=== PATIENT | female | born 1975 | race Caucasian/White ===

== ENCOUNTER 2016-10-23 12:22 | Observation (INO) | payer OTHER ==
[~2016-10-23] VITALS: Ht 175.3 cm; Wt 120.0 kg
--- NOTE | 2016-10-23 14:22 | ED ORDER SUMMARY ---
..... Patient: SARA SOTO OrderSheet [facility] VisitID: [id number] [address] [place] [address] 40y, F Registration Date/Time: 10/23/2016 ORDER SHEET Weight: 122.4 kg (stated) Allergies: Cyclobenzaprine HCl, Robaxin, Vancomycin GENERAL ORDERS: CBC w Diff Urgent (12:59 10/23/2016 PHutchinson DO) (Ack 13:02 LNations ER Tech1) (13:35 LSullivan R.N.) CMP Urgent (12:59 10/23/2016 PHutchinson DO) (Ack 13:02 LNations ER Tech1) (13:35 LSullivan R.N.) UA-Culture if indicated Urgent (12:10/23/2016 PHutchinson DO) (Ack 13:02 LNations ER Tech1) (16:26 JSimbeck R.N.) (Cancelled: Unable to [id number]:27 JSimbeck R.N.) PT with INR Urgent (12:59 10/23/2016 PHutchinson DO) (Ack 13:02 LNations ER Tech1) (13:35 LSullivan R.N.) D-Dimer Urgent (12:59 10/23/2016 PHchinson DO) (Ack 13:02 LNations ER Tech1) (13:35 LSullivan R.N.) PCT (Procalcitonin) Urgent (12:59 10/23/2016 PHutchinson DO) (Ack 13:02 LNations ER Tech1) (13:35 LSullivan R.N.) CRP Urgent (12:59 10/23/2016 PHutchinson DO) (Ack 13:02 LNations ER Tech1) (13:35 LSullivan R.N.) ESR Urgent (12:10/23/2016 PHutchinson DO) (Ack 13:02 LNations ER Tech1) (13:36 LSullivan R.N.) US Venous Right (RIGHT UPPER EXTREMITY; HISTORY OF MASTECTOMY WITH LYMPH NODE REMOVAL) Urgent (13:00 10/23/2016 PHkychinson DO) (Ack 13:03 LNations ER Tech1) (15:05 EHassan R.N.) MEDICATION ORDERS: IV FLUIDS: IV NS : initial bolus 1000 mL (1000 mL/hr), then 250 mL/hr for X4 (NOW) (12:59 10/23/2016 [facility]) (13:52 Marco Antonio R.N.) Vancomycin IV 2 gm/500 mL (NOW) (13:00 10/23/2016 [facility]) (Ack 14:39 Kelvin R.N.) (14:42 Kelvin R.N.) (Cancelled: Oxnftdi22:33 [facility]) Dilaudid IV 1 mg (HIGH ALERT MEDICATION, NOW) (15:00 10/23/2016 [facility]) (15:04 Amairani R.N.) Zofran IV 4 mg (NOW) (15:00 10/23/2016 [facility]) (15:04 Amairani R.N.) Clindamycin IV 900 mg/50mL (NOW) (15:33 10/23/2016 [facility]) (15:47 Marco Antonio R.N.) Benadryl IV 50 mg (NOW) (15:36 10/23/2016 [facility]) (15:47 Marco Antonio R.N.) ORDER SHEET NOTES: [Electronically signed by Justice Bush R.N. (16:27 10/23/2016)] [Electronically signed by Mateo Burks DO (20:18 10/23/2016)] [Electronically locked/signed by Justice Bush R.N. (16:10/23/2016)]
--- NOTE | 2016-10-23 14:22 | ED NURSING NOTES ---
Clinical Report - Nurses [facility] [address] [place] [address] 10/23/2016 12:29 Patient: SARA SOTO TRIAGE Triage time 12:38. Acuity: LEVEL 3. Chief Complaint: (Right arm red, swollen, painful, onset yesterday. s/p mastectomy (2010)). BISHOP COMA SCORE: [place] Coma Scale: 15- eyes open spontaneously (4); best verbal response- oriented x 4 (5); best motor response- obeys commands (6). --12:46 Justice Bush R.N. 12:38 10/23/16. BP: 191/117 taken on the left arm, while sitting. HR: 99. RR: 20. O2 saturation: 95% on room air. Temp: 98.5 F. Pain level now: 12/16. --12:46 Justice Bush R.N. Weight: 122.4 kg stated. Height/Length: 69 inches Per Patient. BMI: 39.9. --12:42 Justice Bush R.N. Medications Naprosyn Oral, as needed. --12:40 Justice Bush R.N. Vitamins OTC. --12:40 Justice Bush R.N. Allergies Cyclobenzaprine HCl. (Restless leg symptoms) Robaxin.(itching) --12:39 Justice Bush R.N. Vancomycin.(hives) --16:25 Justice Bush R.N. History Arrived by private vehicle. This started yesterday. Treatment CARDIOLOGY CONSULTANT: (took her mother's Morphine 30mg last night). SOCIAL HX: Heavy tobacco smoker (cigarette)- 1 pack per day. Occasional alcohol use. History of occasional drug use: marijuana. ABUSE ASSESSMENT: No report of abuse. --12:46 Justice Bush R.N. PROBLEMS: Hypertension. Breast Cancer. --12:41 Justice Bush R.N. ADDITIONAL SURGERIES: Hysterectomy. Mastectomy. --12:41 Justice Bush R.N. Assessment GENERAL / NEURO / PSYCH: Alert. Oriented X 4. Appears in pain. Patient appears calm and cooperative. RESPIRATORY: Respirations not labored. Chest nontender. Breath sounds within normal limits. CVS: Capillary refill less than 2 seconds. SKIN: Mucous membranes are pink. Skin is warm and dry. ( right arm red, hot, dry). --12:46 Justice Bush R.N. Interventions ID band on patient. To treatment room. --12:46 Justice Bush R.N. PHYSICAL ASSESSMENT Ambulatory to room. GENERAL / NEURO / PSYCH: Alert. Oriented X 4. Appears in pain. HEENT: Pupils equal, round and reactive to light. No facial asymmetry noted. Mucous membranes are pink. RESPIRATORY: Respirations not labored. Chest nontender. Breath sounds within normal limits. CVS: Capillary refill less than 2 seconds. Pulses within normal limits. SKIN: ( right arm red, hot, dry, swollen, decreased AROM, c/o burning feeling.). --12:58 Justice Bush R.N. NURSING PROGRESS NOTES Head of bed elevated. Reassurance given. Two patient identifiers checked. Call light placed in reach. Bed placed in lowest position. Brakes of bed on. Patient ready for evaluation- chart flagged. --12:58 Justice Bush R.N. 13:36 10/23/2016 Site #1 started via IV in the left forearm with an 20g angiocath, with aseptic technique and good blood return; two attempts. Blood drawn: rainbow set. Labeled in the presence of the patient and sent to the lab. Saline lock flushed with 10 mL saline. --13:36 Afia Perry R.N. 13:37 10/23/16. ( [employer] tech came into room.). --13:37 Afia Perry R.N. 13:50 10/23/2016 Started bag #1 1000 mL IV Fluids IV NS (Saline); bolus of 1000 mL over 1 hour(s) via site #1. Allergies verified and confirmed 5 rights. IV patency established. IV site checked: no pain, redness, or swelling. IV flushed thoroughly pre- and post-medication administration. --13:52 Justice Bush R.N. ( US at bedside). --13:54 Justice Bush R.N. ( H/P forms in rack.). --14:30 Carmel Domingo, ER Tech1 14:37 10/23/2016 Started 2 gm of Vancomycin IVPB in bag #1 500 mL; over 2 hour(s) via site #1 via IV pump. Allergies verified and confirmed 5 rights. IV patency established. IV site checked: no pain, redness, or swelling. IV flushed thoroughly pre- and post-medication administration. --14:42 Brody Newman R.N. ( overview faxed to ICU). --14:54 Carmel Domingo, ER Tech1 15:04 10/23/2016 Dilaudid (HYDROmorphone HCl PF) IVP 1 mg given over 30 second(s) via site #1. Allergies verified, confirmed 5 rights and sedative warning given to the patient and patient's family. IV patency established. IV site checked: no pain, redness, or swelling. IV flushed thoroughly pre- and post-medication administration. IVP given by RN. --15:04 Pallavi Shaffer R.N. 15:04 10/23/2016 Zofran (Ondansetron HCl) IVP 4 mg given over 2 minute(s) via site #1. Allergies verified and confirmed 5 rights. IV patency established. IV site checked: no pain, redness, or swelling. IV flushed thoroughly pre- and post-medication administration. IVP given by RN. --15:04 Pallavi Shaffer R.N. Reassurance given. The patient is calm and resting quietly. Two patient identifiers checked. --15:08 Pallavi Shaffer R.N. 15:05 10/23/16. BP: 168/100 (regular adult cuff) taken on the left arm, via an automated monitor, while lying. HR: 94. RR: 16. O2 saturation: 97%. Temp: 98.1 F (oral). Pain level now: 02/16. --15:08 Pallavi Shaffer R.N. ( Pt complaint of itching, noted to starting to have a bit of a rash around her left arm, denies SOB. Will notify MD Burks, IV vanco stopped until further evaluation). --15:11 Pallavi Shaffer R.N. 15:45 10/23/2016 Benadryl (DiphenhydrAMINE HCl) IVP 50 mg given over 2 minute(s) via site #1. Allergies verified, confirmed 5 rights and sedative warning given to the patient. IV patency established. IV site checked: no pain, redness, or swelling. IV flushed thoroughly pre- and post-medication administration. IVP given by RN. --15:47 Justice Bush R.N. 15:47 10/23/2016 Started 900 mg of Clindamycin IVPB in bag #1 50 mL; at 50 mL/hr over 1 hour(s) via site #1 via IV pump. Allergies verified and confirmed 5 rights. IV patency established. IV site checked: no pain, redness, or swelling. IV flushed thoroughly pre- and post-medication administration. --15:47 Justice Bush R.N. DISPOSITION / DISCHARGE 15:53 10/23/16. BP: 146/76 (regular adult cuff) taken on the left arm, while lying. HR: 90. RR: 20. O2 saturation: 96% on room air. Temp: 98.9 F (oral). Pain level now: 12/16. --15:53 Justice Bush R.N. 15:58 10/23/2016 Site #[address] upon admission; patent, no pain and no signs of infection or infiltration. Good blood return present. Flushed with 10 mL saline; flushes easily. --16:10 Justice Bush R.N. Departure time: 1558. Condition at departure: stable. Admitted to the Critical Care Unit (301). Report was given to a nurse via a phone call. Report included patient's care, treatment, medications, reviewed medication reconcilliation, and condition (including any recent changes or anticipated changes). All questions were answered. Report was acknowledged. --16:11 Justice Bush R.N. Locked/Released at 10/23/2016 16:27 by Justice Bush R.N.
--- NOTE | 2016-10-23 14:22 | ED ORDER SUMMARY ---
..... Patient: SARA SOTO OrderSheet [facility] VisitID: [id number] [address] [place] [address] 40y, F Registration Date/Time: 10/23/2016 ORDER SHEET Weight: 122.4 kg (stated) Allergies: Cyclobenzaprine HCl, Robaxin, Vancomycin GENERAL ORDERS: CBC w Diff Urgent (12:59 10/23/2016 PHutchinson DO) (Ack 13:02 LNations ER Tech1) (13:35 LSullivan R.N.) CMP Urgent (12:59 10/23/2016 PHutchinson DO) (Ack 13:02 LNations ER Tech1) (13:35 LSullivan R.N.) UA-Culture if indicated Urgent (12:10/23/2016 PHutchinson DO) (Ack 13:02 LNations ER Tech1) (16:26 JSimbeck R.N.) (Cancelled: Unable to [id number]:27 JSimbeck R.N.) PT with INR Urgent (12:59 10/23/2016 PHutchinson DO) (Ack 13:02 LNations ER Tech1) (13:35 LSullivan R.N.) D-Dimer Urgent (12:59 10/23/2016 PHchinson DO) (Ack 13:02 LNations ER Tech1) (13:35 LSullivan R.N.) PCT (Procalcitonin) Urgent (12:59 10/23/2016 PHutchinson DO) (Ack 13:02 LNations ER Tech1) (13:35 LSullivan R.N.) CRP Urgent (12:59 10/23/2016 PHutchinson DO) (Ack 13:02 LNations ER Tech1) (13:35 LSullivan R.N.) ESR Urgent (12:10/23/2016 PHutchinson DO) (Ack 13:02 LNations ER Tech1) (13:36 LSullivan R.N.) US Venous Right (RIGHT UPPER EXTREMITY; HISTORY OF MASTECTOMY WITH LYMPH NODE REMOVAL) Urgent (13:00 10/23/2016 PHnhchinson DO) (Ack 13:03 LNations ER Tech1) (15:05 EHassan R.N.) MEDICATION ORDERS: IV FLUIDS: IV NS : initial bolus 1000 mL (1000 mL/hr), then 250 mL/hr for X4 (NOW) (12:59 10/23/2016 [facility]) (13:52 Marco Antonio R.N.) Vancomycin IV 2 gm/500 mL (NOW) (13:00 10/23/2016 [facility]) (Ack 14:39 Kelvin R.N.) (14:42 Kelvin R.N.) (Cancelled: [id number] [facility]) Dilaudid IV 1 mg (HIGH ALERT MEDICATION, NOW) (15:00 10/23/2016 [facility]) (15:04 Amairani R.N.) Zofran IV 4 mg (NOW) (15:00 10/23/2016 [facility]) (15:04 Amairani R.N.) Clindamycin IV 900 mg/50mL (NOW) (15:33 10/23/2016 [facility]) (15:47 Marco Antonio R.N.) Benadryl IV 50 mg (NOW) (15:36 10/23/2016 [facility]) (15:47 Marco Antonio R.N.) ORDER SHEET NOTES: [Electronically signed by Justice Bush R.N. (16:27 10/23/2016)] [Electronically signed by Mateo Burks DO (20:18 10/23/2016)] [Electronically locked/signed by Justice Bush R.N. (16:10/23/2016)]
--- NOTE | 2016-10-23 14:22 | ED CLINICAL REPORT ---
Clinical Report - Physicians/Mid Levels [facility] [address] [place] [address] 10/23/2016 12:29 Patient: SARA SOTO Time Seen: 12:49. Arrived- By private vehicle. Historian- patient. HISTORY OF PRESENT ILLNESS Chief Complaint: LESION and TENDER AREA. This started yesterday and is still present. It was gradual in onset and has been waxing/waning. It is described as painful. It has been located on the right arm. No cause has been identified. No recent medication or insect bite. (Swelling and redness have rapidly progressed over 24 hours from small area in the right AC to the entire right upper extremity). Similar symptoms previously: Once, milder. ( This occured after mastectomy in the post operative period). Recent medical care: Not recently seen/assessed. REVIEW OF SYSTEMS No fever, chills, sore throat, cough or difficulty breathing. No hoarseness, headache, chest pain, abdominal pain or nausea. No diarrhea, difficulty with urination, joint pain or vomiting. All systems otherwise negative, except as recorded above. PAST HISTORY PCP: Dr Ayo Perez ([place]) She is in the process of changing PCP's - no appointments available until November. Hypertension. Chronic back pain. History of breast cancer. Surgeries: Mastectomy. SOCIAL HISTORY Occasional alcohol use. History of drug use also took her mother's morphine last night: marijuana. Is a local resident. Marital status: . ADDITIONAL NOTES The nursing notes have been reviewed. PHYSICAL EXAM Vital Signs: 10/23/2016 12:38 BP: 191/117. HR: 99. RR: 20. O2 saturation: 95%. Temp: 98.5 F. Pain level now: 7/10. Appearance: Alert. Patient in moderate distress. Eyes: Conjunctivae and eyelids normal. ENT: Pharynx normal. Neck: Neck supple. CVS: Tachycardia. Heart sounds normal. No cardiac murmur. Respiratory: No respiratory distress. Breath sounds normal. Chest nontender. Abdomen: Nontender. No organomegaly. Skin: No cyanosis. No pallor. No diaphoresis. Large area of cellulitis with tenderness, erythema and warmth to right axilla, right arm, right elbow, right forearm, right wrist and right hand. Extremities: (left upper cellulitis). Neuro: Oriented X 3. No motor deficit. No sensory deficit. LABS, X-RAYS, AND EKG Duplex Ultrasound: Right upper extremity study. Negative results. (No DVT or abscess). The exam was performed by a dental technician. The study was independently viewed by me and interpreted by the radiologist. The study was discussed with the radiologist (via tech). Laboratory Tests: CBC w Diff: (BERENICE: 10/23/2016 13:30) ( MsgRcvd 10/23/2016 14:10) Final results Test Result Flag Units (Reference) WHITE BLOOD COUNT 15.6 H K/uL (4.5-11.5) RED BLOOD COUNT 4.57 M/uL (4.00-5.20) HEMOGLOBIN 13.4 gm/dL (12.0-16.0) HEMATOCRIT 39.7 % (36.0-46.0) MEAN CELL VOLUME 87 fL (80-100) MEAN CORPUSCULAR HGB 29 pg (26-34) MEAN CORPUSCULAR HGB CONC 34 g/dL (31-37) RED CELL DISTRIBUTION WIDTH 13.8 % (11.6-14.8) PLATELET COUNT 243 K/uL (150-400) NEUTROPHIL % 78.6 H % (50-75) LYMPH % 16.4 L % (25-40) MONO % 4.2 % (3-14) EOSINOPHIL % 0.6 % (0-4) BASOPHIL % 0.2 % (0-2) SED RATE WESTERGREN 53 H mm/hr (0-20) PT with INR: (BERENICE: 10/23/2016 13:30) ( MsgRcvd 10/23/2016 13:56) Final results Test Result Flag Units (Reference) INR 1.1 (0.8-1.2) Low Intensity Therapy: INR 1.5-2.0 PT range 18.5-23.1Mod.Intensity Therapy: INR 2.0-3.0 PT range 23.1-31.5High Intensity Therapy: INR 2.5-3.5 PT range 27.4-35.5High Intensity Therapy 2: INR 3.0-4.0 PT range 31.5-39.3 D-DIMER QUANTITATIVE 0.30 ug/mLFEU (0.27-0.52) The primary value of this quantitative assay relates toits negative predictive value (i.e. exclusion) of pulmonaryembolism/deep vein thrombosis/DIC.Elevated levels of d-dimer may also occur with:, age, cancer, inflammation, liver disease,post-op, infection, hematoma, coronary disease, peripheralarteriopathy, bleeding disorders and thrombolytic treatment.Results should be correlated with other clinical andradiological data.Testing Methodology: Latex Immunoassay CMP: (BERENICE: 10/23/2016 13:30) ( MsgRcvd 10/23/2016 14:14) Final results Test Result Flag Units (Reference) GLUCOSE 92 mg/dL (70-110) BUN 12 mg/dL (7-18) CREATININE 0.7 mg/dL (0.6-1.3) Estimated GFR >60 mL/min Estimated GFR- >60 mL/min Note: Persistent reduction over 3 months in eGFR<60 mL/min/1.73 m2 defines CKD. Patients with eGFR values>=60 mL/min/1.73 m2 may also have CKD if evidence ofpersistent proteinuria. Additional information may be foundat www.kidney.org. SODIUM 140 mmol/L (136-145) POTASSIUM 3.7 mmol/L (3.5-5.1) CHLORIDE 103 mmol/L (98-107) CARBON DIOXIDE 25 mmol/L (21-32) CALCIUM 8.9 mg/dL (8.5-10.1) TOTAL PROTEIN 7.6 g/dL (6.4-8.2) ALBUMIN 3.4 g/dL (3.3-5.0) BILIRUBIN, TOTAL 0.6 mg/dL (0.0-1.0) ALKALINE PHOSPHATASE 64 U/L (46-116) AST (SGOT) 21 U/L (15-37) ALT (SGPT) 41 U/L (12-78) C-REACTIVE PROTEIN 74.5 H mg/dL (0.0-0.9) . Pulse Oximetry: 10/23/2016 12:38 O2 saturation: 95%. (FIO2 - room air). Interpretation: normal. PROGRESS AND PROCEDURES Course of Care: Normal Saline 1 liter IVPB given. Vancomycin approx 50mg - pt had a reported redness to the left arm and discontinued IVPB given. Benadryl 50 mg IVP given. Zofran 4 mg IVP given. Dilaudid 1 mg IVP given. Patient is stable. Physical exam findings are improved. Symptoms much better. Discussed case with hospitalist, (Rowdy). Reviewed test results. Agreed upon treatment plan. Health care provider will see patient in ED. Patient/family counseled. Transition orders written. Disposition: Admitted to Acute Care. Condition: guarded and improved. CLINICAL IMPRESSION Cellulitis of the right upper arm, right elbow, right forearm, right wrist and right hand. Essential hypertension. INSTRUCTIONS Follow-up: Screening today revealed the patient's blood pressure to be in the hypertensive range. The patient should follow up with a primary care provider for blood pressure management. (Electronically signed by Mateo Burks DO 10/23/2016 20:18)
--- NOTE | 2016-10-23 14:35 | DIAGNOSTIC IMAGING REPORT ---
PROCEDURE: US VENOUS - RIGHT EXT INDICATION: SWELLING TECHNIQUE: Duplex sonography of the deep venous system in the right upper extremity was performed. Compression and augmentation techniques were used. COMPARISON: None. FINDINGS: Each interrogated segment of deep vein from the basilic and cubital veins into the cephalic and brachial veins demonstrates normal compressibility, augmentation and/or color Doppler flow without filling defect. No evidence of significant soft-tissue edema, soft-tissue mass or cyst. IMPRESSION: 1. No deep venous thrombosis in the right upper extremity.
--- NOTE | 2016-10-23 15:17 | HISTORY AND PHYSICAL ---
ADMITTED: 10/23/2016 CHIEF COMPLAINT: 1. Right arm swelling and pain HISTORY OF PRESENT ILLNESS: The patient states that yesterday around 12 in the afternoon, she started having right arm pain and swelling. This worsened throughout the day. It had gotten red from her arm, right side, down towards her hand last night, and then in the morning she woke up and it was all the way up through her hand, to the knuckles, and the pain was bad enough that she was having a hard time sleeping. She came into the emergency department for further evaluation. States she has had an episode once before, postmastectomy in the past, and she does have a history of mastectomy on the right hand side with lymph node dissection, with some swelling chronically but no redness in general. MEDICAL/SURGICAL HISTORY: Past medical history: She has had breast cancer, hypertension, tobacco use. Surgical history: She has had a mastectomy in 2010, hysterectomy, partial in 2008, complete in 2011. MEDICATIONS: 1. Naprosyn 500 b.i.d. p.r.n. pain. 2. Herbals. 3. History of Neurontin in the past. 4. She did take one of a family member's pain killers last night. ALLERGIES: 1. ROBAXIN INTOLERANCE. 2. FLEXERIL INTOLERANCE. SOCIAL HISTORY: She is . She has rare alcohol and marijuana use, and she does smoke on a daily basis. She is thinking about quitting with Chantix. Her primary doctor is Dr. Héctor Perez through [place]. She has not seen him yet, but plans on seeing him soon. FAMILY HISTORY: Father is unknown. Mom is alive and well. REVIEW OF SYSTEMS: Notable for poor sleep. She has this a history of some high blood pressure. She has the redness, pain, swelling, and the poor sleep as discussed. Otherwise, she has a little bit of a cough and wheeze from smoking history. PHYSICAL EXAMINATION: GENERAL: She is an alert female who is in mild distress as she is getting an ultrasound of her right arm that is tender. HEENT: Extraocular movements intact. Pupils equal, round, and reactive to light. Oropharynx is clear, with moist mucous membranes. NECK: Supple, without lymphadenopathy. LUNGS: Coarse breath sounds and wheezes bilaterally. HEART: Regular rate and rhythm. No murmurs, clicks, rubs, or gallops. EXTREMITIES: Her right arm red, is swollen, it is tender. The redness goes from her upper arm/shoulder region down to her hand, to the knuckles of her fingers. Her lower extremities are normal bilaterally. ABDOMEN: Soft, nontender. GENITOURINARY: Deferred. RECTAL: Deferred. BREASTS: Deferred. NEUROLOGIC: Cranial nerves II-XII are intact. Her strength and sensation are grossly intact. LAB/IMAGING: Her CBC shows a white count of 15.6, hematocrit of 39.7, platelets of 243. PT/INR 1.1. D-dimer is 0.30. A comprehensive metabolic panel: Glucose 92, and CRP of 74.5. The rest of the CMP was normal. An ultrasound shows no blood clot as well as no abscess in her right arm. IMPRESSION: 1. This is a 40-year-old female who presents to the emergency department with right-sided cellulitis post a history of mastectomy and breast cancer, who now has pain and swelling of the arm. PLAN: She is going to be admitted for cellulitis, elevated white blood cell count with leukocytosis, and also elevated CRP. We will treat her with antibiotics and have a trial of 1 dose of ceftriaxone and then start on Bactrim DS p.o. t.i.d. and see if she improves over the next 24-48 hours. I anticipate if she is getting better, we will be able to send her home shortly. Likely this is cellulitis related to previous swelling in her arm. CODE STATUS: FULL CODE.
[2016-10-23 16:05] VITALS: BP 163/90
--- NOTE | 2016-10-23 20:18 | ED MAR SUMMARY ---
..... Medication Administration Record [facility] [address] [place] [address] Patient: SARA SOTO Visit ID: [id number] 40y, F Weight: 122.4 kg Height/Length: 69 in BMI: 39.9 ALLERGIES: Cyclobenzaprine HCl, Robaxin, Vancomycin Start 13:50 10/23/2016 Justice Bush R.N. Medication Administered: IV NS (SALINE), Dose: IV Fluids, Bolus: 1000 mL over 1 hour(s), Dispensed: 1000 mL bag, Site: #1 left forearm. Medication Ordered: IV NS : initial bolus 1000 mL (1000 mL/hr), then 250 mL/hr for X4 (NOW). Start 14:37 10/23/2016 Brody Newman R.N. Medication Administered: VANCOMYCIN [IVPB], Dose: 2 gm IVPB over 2 hour(s), Dispensed: 500 mL bag, Site: #1 left forearm. Medication Ordered: Vancomycin IV 2 gm/500 mL (NOW). Given 15:04 10/23/2016 Pallavi Shaffer R.N. Medication Administered: DILAUDID [IVP] (HYDROMORPHONE HCL PF), Dose: 1 mg IVP over 30 second(s), Site: #1 left forearm. Medication Ordered: Dilaudid IV 1 mg (HIGH ALERT MEDICATION, NOW). Given 15:04 10/23/2016 Pallavi Shaffer R.N. Medication Administered: ZOFRAN [IVP] (ONDANSETRON HCL), Dose: 4 mg IVP over 2 minute(s), Site: #1 left forearm. Medication Ordered: Zofran IV 4 mg (NOW). Given 15:45 10/23/2016 Justice Bush R.N. Medication Administered: BENADRYL [IVP] (DIPHENHYDRAMINE HCL), Dose: 50 mg IVP over 2 minute(s), Site: #1 left forearm. Medication Ordered: Benadryl IV 50 mg (NOW). Start 15:47 10/23/2016 Justice Bush R.N. Medication Administered: CLINDAMYCIN [IVPB], Dose: 900 mg IVPB over 1 hour(s), Rate: 50 mL/hr, Dispensed: 50 mL bag, Site: #1 left forearm. Medication Ordered: Clindamycin IV 900 mg/50mL (NOW).
--- NOTE | 2016-10-23 20:18 | ED DISCHARGE INSTRUCTIONS ---
Patient: SARA SOTO General Instructions [facility] VisitID: [id number] [place] [address] 40y, F Registration Date/Time: 10/23/2016 Cellulitis of the right upper arm, right elbow, right forearm, right wrist and right hand. Essential hypertension. INSTRUCTIONS Follow-up: Screening today revealed the patient's blood pressure to be in the hypertensive range. The patient should follow up with a primary care provider for blood pressure management. ADDITIONAL INFORMATION High Blood Pressure --Established High Blood Pressure (Hypertension) is a chronic disease. The cause is unknown in most cases. It can usually be controlled with lifestyle changes and/or medicines. Symptoms of high blood pressure may include headache, dizziness, visual changes, chest pain and shortness of breath. Sometimes it causes no symptoms at all. However, even if there are no symptoms, untreated high blood pressure increases the risk of heart attack, also known as acute myocardial infarction, or AMI, and stroke. It is a serious health risk and should not be ignored. A normal blood pressure is 120/80 or less. The first (top) number is the "systolic" pressure. The second (bottom) number is the "diastolic" pressure. Hypertension exists when either the top number is 140 or higher, OR the bottom number is 90 or higher on repeated measurements. Home Care: All patients with high blood pressure should do the following to lower their pressure. If you are on medicines, then these methods may reduce or eliminate your need for medicines in the future. Begin a weight loss program if you are overweight. Reduce your salt intake. Avoid high salt foods (olives, pickles, smoked meats, salted potato chips, etc.). Do not add salt to your food at the table. Use only small amounts of salt when cooking. Begin an exercise program. Discuss with your doctor what type of exercise program would be best for you. It doesn't have to be difficult. Even brisk walking for 20 minutes three times a week is a good form of exercise. Avoid medicines which contain heart stimulants. This includes many cold and sinus decongestant pills and sprays as well as diet pills. Check the warnings about hypertension on the label. Stimulants such as amphetamine or cocaine could be lethal for someone with hypertension. Never take these. Limit your caffeine intake or switch to caffeine-free products. Stop smoking. If you are a long-time smoker, this can be hard. Enroll in a stop-smoking program to improve your chance of success. Learning how to handle stress better is an important part of any program to lower blood pressure. Learn about relaxation methods such as meditation, yoga or biofeedback. If medicines were prescribed, take them exactly as directed. Missing doses may cause your blood pressure get out of control. Consider buying an automatic blood pressure machine (available at most pharmacies). Use this to monitor your blood pressure at home and report the results to your doctor. Follow Up: Regular visits to your own physician for blood pressure checks and medicine adjustment is an important part of your care. Make a follow-up appointment as directed by our staff. Get Prompt Medical Attention if any of the following occur: Chest pain or shortness of breath Severe headache Throbbing or rushing sound in the ears Nosebleed Sudden severe abdominal pain Extreme drowsiness, confusion or fainting Dizziness or vertigo (dizziness with spinning sensation) Weakness of an arm or leg or one side of the face Difficulty with speech or vision You have been given the following additional information: Hypertension, Established (Electronically signed by Mateo Burks DO 10/23/2016 20:18)
--- NOTE | 2016-10-23 20:18 | ED MAR SUMMARY ---
..... Medication Administration Record [facility] [address] [place] [address] Patient: SARA SOTO Visit ID: [id number] 40y, F Weight: 122.4 kg Height/Length: 69 in BMI: 39.9 ALLERGIES: Cyclobenzaprine HCl, Robaxin, Vancomycin Start 13:50 10/23/2016 Justice Bush R.N. Medication Administered: IV NS (SALINE), Dose: IV Fluids, Bolus: 1000 mL over 1 hour(s), Dispensed: 1000 mL bag, Site: #1 left forearm. Medication Ordered: IV NS : initial bolus 1000 mL (1000 mL/hr), then 250 mL/hr for X4 (NOW). Start 14:37 10/23/2016 Brody Newman R.N. Medication Administered: VANCOMYCIN [IVPB], Dose: 2 gm IVPB over 2 hour(s), Dispensed: 500 mL bag, Site: #1 left forearm. Medication Ordered: Vancomycin IV 2 gm/500 mL (NOW). Given 15:04 10/23/2016 Pallavi Shaffer R.N. Medication Administered: DILAUDID [IVP] (HYDROMORPHONE HCL PF), Dose: 1 mg IVP over 30 second(s), Site: #1 left forearm. Medication Ordered: Dilaudid IV 1 mg (HIGH ALERT MEDICATION, NOW). Given 15:04 10/23/2016 Pallavi Shaffer R.N. Medication Administered: ZOFRAN [IVP] (ONDANSETRON HCL), Dose: 4 mg IVP over 2 minute(s), Site: #1 left forearm. Medication Ordered: Zofran IV 4 mg (NOW). Given 15:45 10/23/2016 Justice Bush R.N. Medication Administered: BENADRYL [IVP] (DIPHENHYDRAMINE HCL), Dose: 50 mg IVP over 2 minute(s), Site: #1 left forearm. Medication Ordered: Benadryl IV 50 mg (NOW). Start 15:47 10/23/2016 Justice Bush R.N. Medication Administered: CLINDAMYCIN [IVPB], Dose: 900 mg IVPB over 1 hour(s), Rate: 50 mL/hr, Dispensed: 50 mL bag, Site: #1 left forearm. Medication Ordered: Clindamycin IV 900 mg/50mL (NOW).
--- NOTE | 2016-10-23 20:18 | ED MED RECONCILIATION SUMMARY ---
Patient: SARA SOTO Medication Reconciliation Report [facility] VisitID: [id number] [address] [place] [address] 40y, F Registration Date/Time: 10/23/2016 Weight: 122.4 kg Height/Length: 69 in. BMI: 39.9 ALLERGIES: Cyclobenzaprine HCl, Robaxin, Vancomycin The patient's Home Medications are listed below: THE FOLLOWING MEDICATIONS NEED TO BE RECONCILED: Naprosyn Oral Vitamins OTC The source(s) of the original Home Medication information: Not obtained. The following Medications were given to the patient in the Emergency Department: IV NS IV Fluids bolus 1000 mL over 1 hour(s), administered: 10/23/2016 1:50:00 PM Vancomycin [IVPB] IVPB bolus 0, then 2 gm, administered: 10/23/2016 2:37:00 PM Dilaudid [IVP] IVP 1 mg, administered: 10/23/2016 3:04:00 PM Zofran [IVP] IVP 4 mg, administered: 10/23/2016 3:04:00 PM Benadryl [IVP] IVP 50 mg, administered: 10/23/2016 3:45:00 PM Clindamycin [IVPB] IVPB bolus 0, then 900 mg 50 mL/hr, administered: 10/23/2016 3:47:00 PM The following Medications were prescribed to the patient: None.
--- NOTE | 2016-10-23 20:18 | ED MED RECONCILIATION SUMMARY ---
Patient: SARA SOTO Medication Reconciliation Report [facility] VisitID: [id number] [address] [place] [address] 40y, F Registration Date/Time: 10/23/2016 Weight: 122.4 kg Height/Length: 69 in. BMI: 39.9 ALLERGIES: Cyclobenzaprine HCl, Robaxin, Vancomycin The patient's Home Medications are listed below: THE FOLLOWING MEDICATIONS NEED TO BE RECONCILED: Naprosyn Oral Vitamins OTC The source(s) of the original Home Medication information: Not obtained. The following Medications were given to the patient in the Emergency Department: IV NS IV Fluids bolus 1000 mL over 1 hour(s), administered: 10/23/2016 1:50:00 PM Vancomycin [IVPB] IVPB bolus 0, then 2 gm, administered: 10/23/2016 2:37:00 PM Dilaudid [IVP] IVP 1 mg, administered: 10/23/2016 3:04:00 PM Zofran [IVP] IVP 4 mg, administered: 10/23/2016 3:04:00 PM Benadryl [IVP] IVP 50 mg, administered: 10/23/2016 3:45:00 PM Clindamycin [IVPB] IVPB bolus 0, then 900 mg 50 mL/hr, administered: 10/23/2016 3:47:00 PM The following Medications were prescribed to the patient: None.
[2016-10-23 22:40] VITALS: BP 159/93
[2016-10-24 04:07] VITALS: BP 138/65
[2016-10-24 06:32] VITALS: BP 123/70
--- NOTE | 2016-10-24 06:35 | Progress Note ---
Subjective General Patient is a 40 year old female who is doing much better. States she has a history of no pain tolerance and also huge tolerance to pain meds. Was feeling like hydrocodone didn't help at all. Has less red but still "tight" swollen. Physical Exam Vital Signs / I&Os Vital Signs Date Time Temp Pulse Resp B/P Pulse O2 O2 Flow FiO2 Ox Delivery Rate 10/24 0638 Room Air 10/24 0632 98.4 80 19 123/70 97 10/24 0407 98.8 83 18 138/65 95 Room Air 10/23 2240 98.8 91 16 159/93 97 Room Air 10/23 1950 Room Air 10/23 1605 98.8 93 20 163/90 99 I&O 10/24 0000 10/23 1600 10/23 0800 Intake Total 740 Output Total 700 Balance 40 General Appearance Alert Lungs Clear to auscultation, Normal air movement Cardiovascular Regular rate and rhythm Abdomen Soft, No tenderness Extremities No edema, right upper extremity with minimal erythema at the elbow. no longer red hand LAB Results Laboratory Tests 10/24 10/23 10/23 10/23 0405 1330 1330 1300 Chemistry Plasma Sodium (136 - 145 mmol/L) 140 Plasma Potassium (3.5 - 5.1 mmol/L) 3.7 Plasma Chloride (98 - 107 mmol/L) 103 CO2 (Enzymatic) (21 - 32 mmol/L) 25 BUN (7 - 18 mg/dL) 12 Creatinine (0.6 - 1.3 mg/dL) 0.7 Est GFR ( Amer) (mL/min) >60 Est GFR (Non-Af Amer) (mL/min) >60 Glucose (70 - 110 mg/dL) 92 Plasma Calcium (8.5 - 10.1 mg/dL) 8.9 Total Bilirubin (0.0 - 1.0 mg/dL) 0.6 AST (15 - 37 U/L) 21 ALT (12 - 78 U/L) 41 Alkaline Phosphatase (46 - 116 U/L) 64 C-Reactive Protein (0.0 - 0.9 mg/dL) 74.5 Total Protein (6.4 - 8.2 g/dL) 7.6 Albumin (3.3 - 5.0 g/dL) 3.4 Procalcitonin (0 - 0.5 ng/mL) <0.5 Coagulation INR (0.8 - 1.2) 1.1 D-Dimer, Quantitative (0.27 - 0.52 ug/mLFEU) 0.30 Hematology WBC (4.5 - 11.5 K/uL) 11.9 15.6 RBC (4.00 - 5.20 M/uL) 4.43 4.57 Hgb (12.0 - 16.0 gm/dL) 12.8 13.4 Hct (36.0 - 46.0 %) 38.6 39.7 MCV (80 - 100 fL) 87 87 MCH (26 - 34 pg) 29 29 RDW (11.6 - 14.8 %) 14.0 13.8 Neut % (Auto) (50 - 75 %) 69.1 78.6 Lymph % (Auto) (25 - 40 %) 22.9 16.4 [place] % (Auto) (3 - 14 %) 5.5 4.2 Eos % (Auto) (0 - 4 %) 2.3 0.6 Baso % (Auto) (0 - 2 %) 0.2 0.2 Plt Count, EDTA (150 - 400 K/uL) 219 243 PUBS MCHC (31 - 37 g/dL) 33 34 ESR Westergren (0 - 20 mm/hr) 53 Urines Urine Color Cancelled Urine Appearance Cancelled Urine pH Cancelled Ur Specific [place] Cancelled Urine Protein Cancelled Urine Ketones Cancelled Urine Blood Cancelled Urine Nitrite Cancelled Urine Bilirubin Cancelled Urine Urobilinogen Cancelled Ur Leukocyte Esterase Cancelled Urine RBC Cancelled Urine WBC Cancelled Ur Epithelial Cells Cancelled Urine Bacteria Cancelled Urine Glucose Cancelled Microbiology Date/Time Procedure - Status Source Growth 10/23 1800 MRSA Screen - RECD NOSE Assessment and Plan Problem List 1. Cellulitis of right upper extremity Plan Is doing better at this time but still tight/swollen hand arm. Would like to wait until late today vs tomorrow to figure out if d/c home. Work on weaning down/off of pain meds today if worsening then I would like an ortho consult ? need to open any tissue that may hold an abscess; clinically other than pain appears much improved. With her hx of prior chronic pain on larger doses of narcotics in the past ( 1 year post surgery) will watch closely. Goal today wean on pain meds and watch on orals. 2. Wheeze Plan smoker and trial of albuterol
[2016-10-24 10:42] VITALS: BP 148/68
--- NOTE | 2016-10-24 12:42 | Consultation Report ---
History Chief Complaint R upper extremity pain History of Present Illness I was asked by Dr. 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 She reports that she developed pain and swelling and redness in the arm yesterday. She was admitted for cellulitis with an elevated C-reactive protein level and white blood cell count greater than 15 started on antibiotics and her white count is stopped just above normal promptly now 11.9. However she has a very low pain tolerance and is requiring 10 mg of oxycodone every 12 hours for pain control and Dr. Reno wanted me to see her and determine if there was any surgical reason for this level of pain. She describes the pain is like a bad sunburn with some tightness in the arm but she has not noted any numbness tingling weakness or inability to move her fingers and wrist elbow or shoulder. The pain does extend from the shoulder to the wrist but is localized more on the volar surface in the antecubital area. She had an ultrasound of the upper extremity which showed no evidence of DVT and no abscess or fluid collection was reported. Patient History 1. Cellulitis of right upper extremity 2. Wheeze Social History She has a who is on the telephone with her calling while I enter the room. Medications and Allergies Medications Current Medications Sig/Nellie Start time Last Medication Dose Route Stop Time Status Admin Lisinopril 10 MG DAILY 10/24 0900 AC 10/24 PO 0920 Albuterol Sulfate 2.5 MG Q4H PRN 10/24 0700 AC IN Oxycodone HCl 5 MG Q4H PRN 10/24 0700 AC 10/24 PO 1124 Ketorolac 30 MG Q8H PRN 10/23 2315 AC 10/24 Tromethamine IV 10/25 2314 0921 Diphenhydramine HCl 25 MG Q6H PRN 10/23 2230 AC 10/24 PO 1123 Trimethoprim/ 1 TAB TID 10/23 2200 AC 10/24 Sulfamethoxazole PO 0612 Promethazine HCl 12.5 MG Q6H PRN 10/23 1715 AC 10/23 IV 1850 Acetaminophen 650 MG Q6H PRN 10/23 1500 AC PO Ceftriaxone Sodium/ 1 GM ONCE 10/23 1500 CAN Dextrose IV Ondansetron HCl 4 MG Q4H PRN 10/23 1430 AC IV Allergies Coded Allergies: Cyclobenzaprine (Severe, 10/23/16) Methocarbamol (Severe, 10/23/16) Vancomycin (Intermediate, Hives 10/23/16) Review of Systems Constitutional Denies: Fever, Chills, Sweats, Weakness. Musculoskeletal Shoulder Pain, Arm Pain, Hand Pain. Skin Other (redness R UE). Neurological Denies: Weakness, Numbness. Physical Exam Vital Signs / I&Os Vital Signs Date Time Temp Pulse Resp B/P Pulse O2 O2 Flow FiO2 Ox Delivery Rate 10/24 1145 Room Air 10/24 1042 36.7 81 20 148/68 96 10/24 0638 Room Air 10/24 0632 36.9 80 19 123/70 97 10/24 0407 37.1 83 18 138/65 95 Room Air 10/23 2240 37.1 91 16 159/93 97 Room Air 10/23 1950 Room Air 10/23 1605 37.1 93 20 163/90 99 I&O 10/24 0000 10/23 1600 10/23 0800 Intake Total 740 Output Total 700 Balance 40 General Appearance Alert, Oriented X3, Cooperative, No acute distress HEENT Normal exam, Atraumatic Lungs Normal air movement Extremities No cyanosis, No clubbing, Normal pulses, the right upper extremity is mildly swollen and flushed without pitting edmea. All compartments are soft. She has full active ROM of elbow, wrist, forearm and fingers without severe pain. Skin No Rashes, No Breakdown, mild hyperemia R UE not localized to any joint or compartment. Neurological sensation is intact to light touch in median radial ulnar axillary and musculocutaneous nerve distributions of the right upper extremity. She is able to fire elbow flexors extensors finger flexors extensors abductors and opponens without significant pain. Capillary refill is less than 1 second radial pulse 1+. Psych/Mental Status Mental status normal, Mood normal LAB Results Laboratory Tests 10/24 10/23 10/23 10/23 0405 1330 1330 1300 Chemistry Plasma Sodium (136 - 145 mmol/L) 140 Plasma Potassium (3.5 - 5.1 mmol/L) 3.7 Plasma Chloride (98 - 107 mmol/L) 103 CO2 (Enzymatic) (21 - 32 mmol/L) 25 BUN (7 - 18 mg/dL) 12 Creatinine (0.6 - 1.3 mg/dL) 0.7 Est GFR ( Amer) (mL/min) >60 Est GFR (Non-Af Amer) (mL/min) >60 Glucose (70 - 110 mg/dL) 92 Plasma Calcium (8.5 - 10.1 mg/dL) 8.9 Total Bilirubin (0.0 - 1.0 mg/dL) 0.6 AST (15 - 37 U/L) 21 ALT (12 - 78 U/L) 41 Alkaline Phosphatase (46 - 116 U/L) 64 C-Reactive Protein (0.0 - 0.9 mg/dL) 74.5 Total Protein (6.4 - 8.2 g/dL) 7.6 Albumin (3.3 - 5.0 g/dL) 3.4 Procalcitonin (0 - 0.5 ng/mL) <0.5 Coagulation INR (0.8 - 1.2) 1.1 D-Dimer, Quantitative (0.27 - 0.52 ug/mLFEU) 0.30 Hematology WBC (4.5 - 11.5 K/uL) 11.9 15.6 RBC (4.00 - 5.20 M/uL) 4.43 4.57 Hgb (12.0 - 16.0 gm/dL) 12.8 13.4 Hct (36.0 - 46.0 %) 38.6 39.7 MCV (80 - 100 fL) 87 87 MCH (26 - 34 pg) 29 29 RDW (11.6 - 14.8 %) 14.0 13.8 Neut % (Auto) (50 - 75 %) 69.1 78.6 Lymph % (Auto) (25 - 40 %) 22.9 16.4 [place] % (Auto) (3 - 14 %) 5.5 4.2 Eos % (Auto) (0 - 4 %) 2.3 0.6 Baso % (Auto) (0 - 2 %) 0.2 0.2 Plt Count, EDTA (150 - 400 K/uL) 219 243 PUBS MCHC (31 - 37 g/dL) 33 34 ESR Westergren (0 - 20 mm/hr) 53 Urines Urine Color Cancelled Urine Appearance Cancelled Urine pH Cancelled Ur Specific [place] Cancelled Urine Protein Cancelled Urine Ketones Cancelled Urine Blood Cancelled Urine Nitrite Cancelled Urine Bilirubin Cancelled Urine Urobilinogen Cancelled Ur Leukocyte Esterase Cancelled Urine RBC Cancelled Urine WBC Cancelled Ur Epithelial Cells Cancelled Urine Bacteria Cancelled Urine Glucose Cancelled Microbiology Date/Time Procedure - Status Source Growth 10/23 1800 MRSA Screen - RECD NOSE Imaging R UE ultrasound: No DVT. No abscess or joint effussion mentioned in report. Assessment and Plan Problem List 1. Cellulitis of right upper extremity Plan No evidence of abscess, septic arthritis, deep infection or comartment syndrome. No need for surgical care. Pain and antibiotic management per Dr. Zacarias.
[2016-10-24 14:35] VITALS: BP 168/88
[2016-10-24] MEDS ORDERED: SMZ-TMP DS1 TAB PO (14:38)
--- NOTE | 2016-10-24 14:38 | Provider's Discharge Care Plan ---
Problem, Goal, Plan Problem List 1. Cellulitis of right upper extremity Instructions: Follow up as directed, Take meds as directed 2. Wheeze Instructions: Stop smoking
--- NOTE | 2016-10-24 14:38 | Provider's Discharge Care Plan ---
Problem, Goal, Plan Problem List 1. Cellulitis of right upper extremity Instructions: Follow up as directed, Take meds as directed 2. Wheeze Instructions: Stop smoking
[2016-10-24] MEDS ORDERED: LISINOPRIL10 MG PO (14:39)
[2016-10-24] MEDS ORDERED: TRAMADOL HCL50 MG PO (14:47)
== END 2016-10-24 16:20 | disposition home or self-care (01) ==
LOC: ED SRH 12:22 → TRANS SRH 14:35 → ACUTE2 SRH 14:35 → CC SRH 16:12 → ACUTE2 SRH 10-24 11:53
PROVIDERS: ADMIT Emergency Medicine
DX: L03.113 Cellulitis of right upper limb (principal); I97.2 Postmastectomy lymphedema syndrome; R06.2 Wheezing; I10 Essential (primary) hypertension; F17.210 Nicotine dependence, cigarettes, uncomplicated; Z90.11 Acquired absence of right breast and nipple; Z85.3 Personal history of malignant neoplasm of breast